=== PATIENT | male | born 1970 | race African-American/Black ===

== ENCOUNTER 2016-11-06 12:42 | Inpatient (IN) | payer OTHER ==
[2016-11-06 16:06] VITALS: BMI 23.6
--- NOTE | 2016-11-06 17:52 | HP ---
CIWA Score - CIWA Score Nausea/Vomitin-Mild Nausea/No Vomiting Muscle Tremors: 4-Moderate,w/Arms Extend Anxiety: 4-Mod. 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 170 MG LAST DOSE 11/06/16 IS ADMITTED TO DETOX Exam Limitations: No Limitations - Ebola screening Have you traveled outside of the country in the last 21 days: No Have you had contact with anyone from an Ebola affected area: No Have you been sick,other than usual withdrawal symptoms: No Do you have a fever: No - Review of Systems Constitutional: Chills, Changes in sleep, Weight Stable EENT: reports: No Symptoms Reported Respiratory: reports: No Symptoms reported Cardiac: reports: No Symptoms Reported GI: reports: Nausea, Poor Fluid Intake, Abdominal cramping : reports: No Symptoms Reported Musculoskeletal: reports: Muscle Weakness (RIGHT ARM) Integumentary: reports: No Symptoms Reported Neuro: reports: Seizure (COCAINE INDUCED - LAST EPISODE 2014), Tremors Endocrine: reports: No Symptoms Reported Hematology: reports: No Symptoms Reported Psychiatric: reports: Judgement Intact, Anxious, Depressed Other Systems: Reviewed and Negative Patient History - Patient Medical History Hx Anemia: No Hx Asthma: Yes Hx Chronic Obstructive Pulmonary Disease (COPD): No Hx Cancer: No Hx Cardiac Disorders: No Hx Congestive Heart Failure: No Hx Hypertension: No Hx Hypercholesterolemia: No Hx Pacemaker: No HX Cerebrovascular Accident: No Hx Seizures: Yes (2014 COCAINE INDUCED) Hx Dementia: No Hx Diabetes: No Hx Gastrointestinal Disorders: No Hx Liver Disease: No Hx Genitourinary Disorders: No Hx Sexually Transmitted Disorders: No Hx Renal Disease (ESRD): No Hx Thyroid Disease: No Hx Human Immunodeficiency Virus (HIV): No Hx Hepatitis C: No Hx Depression: Yes Hx Suicide Attempt: No Hx Bipolar Disorder: No Hx Schizophrenia: No - Patient Surgical History Past Surgical History: Yes Hx Neurologic Surgery: No Hx Cataract Extraction: No Hx Cardiac Surgery: No Hx Lung Surgery: No Hx Breast Surgery: No Hx Breast Biopsy: No Hx Abdominal Surgery: No Hx Appendectomy: No Hx Cholecystectomy: No Hx Genitourinary Surgery: No Hx Orthopedic Surgery: Yes (2001 RIGHT LOWER LEG) Anesthesia Reaction: No - PPD History Previous Implant?: Yes Documented Results: Negative w/o proof Implanted On Prior [facility] Admission?: No - Smoking Cessation Smoking history: Current every day smoker Have you smoked in the past 12 months: Yes Aproximately how many cigarettes per day: 6 Cigars Per Day: 0 Hx Chewing Tobacco Use: No Initiated information on smoking cessation: Yes 'Breaking Loose' booklet given: 11/06/16 - Substance & Tx. History Hx Alcohol Use: Yes Hx Substance Use: Yes Substance Use Type: Alcohol, Heroin, Tranquilizers Hx Substance Use Treatment: Yes - Substances Abused Alcohol Route: Oral Frequency: Daily Amount used: 22OZX5 [id number] Age of first use: 14 Date of Last Use: 11/06/16 Benzodiazepine (Klonopin) Route: Oral Frequency: Daily Amount used: 6 MG Age of first use: 36 Date of Last Use: 11/06/16 Family Disease History - Family Disease History Family Disease History: Heart Disease: Father ( LIVER), Other: Father, Mother (OVERDOSE ), Brother () Admission Physical Exam BHS - Vital Signs Vital Signs: Vital Signs - 24 hr 11/06/16 15:57 Temperature 96 F L Pulse Rate 74 Respiratory 20 Rate Blood Pressure 113/70 - Physical General Appearance: Yes: Appropriately Dressed, Mild Distress, Thin, Tremorous, Irritable, Sweating, Anxious HEENTM: Yes: Hearing grossly Normal, Normal ENT Inspection, Normocephalic, Normal Voice Respiratory: Yes: Chest Non-Tender, Lungs Clear, Normal Breath Sounds, No Respiratory Distress, No Accessory Muscle Use Neck: Yes: Supple, Trachea in good position Breast: Yes: Breasts Symetrical Cardiology: Yes: Regular Rhythm, Regular Rate, S1, S2 Abdominal: Yes: Non Tender, Soft Genitourinary: Yes: Within Normal Limits Back: Yes: Normal Inspection Musculoskeletal: Yes: Gait Steady, Muscle weakness (RIGHT ARM) Extremities: Yes: Normal Inspection, Non-Tender, Tremors Neurological: Yes: Alert, Motor Strength 5/5, Normal Response, Depressed Affect Integumentary: Yes: Warm Lymphatic: Yes: Within Normal Limits - Diagnostic (1) Alcohol dependence with uncomplicated withdrawal Current Visit: Yes Status: Acute (2) Methadone maintenance therapy patient Current Visit: Yes Status: Chronic (3) Nicotine dependence Current Visit: Yes Status: Acute Qualifiers: Nicotine product type: cigarettes Substance use status: in withdrawal Qualified Code(s): F17.213 - Nicotine dependence, cigarettes, with withdrawal (4) Asthma Current Visit: Yes Status: Chronic Qualifiers: Asthma severity: mild intermittent Asthma complication type: with status asthmaticus Qualified Code(s): J45.22 - Mild intermittent asthma with status asthmaticus (5) Weight loss Current Visit: Yes Status: Chronic (6) Depression (emotion) Current Visit: Yes Status: Suspected Qualifiers: Depression Type: dysthymia Qualified Code(s): F34.1 - Dysthymic disorder (7) Seizure Current Visit: Yes Status: Resolved Comment: COCAINE INDUCED - LAST EPISODE 2014 (8) Weakness of right arm Current Visit: Yes Status: Chronic Comment: 2 YEARS - SCHEDULE FOR SURGERY - ROTATOR CUP "DISSOCIATED" Cleared for Admission [facility] - Detox or Rehab [facility] Level of Care: Medically Managed Detox Regimen/Protocol: Valium [facility] Breath Alcohol Content Breath Alcohol Content: 0 Urine Drug Screen - Results Drug Screen Negative: No Urine Drug Screen Results: BZO-Benzodiazepines, MTD-Methadone
[2016-11-06] MEDS ORDERED: MAGNESIUM HYDROX 2400MG/30ML ORAL SUSPENSION 30 ML CUP PO PRN (18:02)
[2016-11-06] MEDS ORDERED: IBUPROFEN 400 MG TABLET (FP) PO PRN (18:02)
[2016-11-06] MEDS ORDERED: LOPERAMIDE HCL 2 MG CAPSULE PO PRN (18:02)
[2016-11-06] MEDS ORDERED: P-EPHED 60MG/TRIPROLIDI 2.5MG TABLET PO PRN (18:02)
[2016-11-06] MEDS ORDERED: ACETAMINOPHEN 325 MG TABLET (FP) PO PRN (18:02)
[2016-11-06] MEDS ORDERED: MAG HYDROX/AL HYDROX/SIMETH 30 ML UNIT-DOSE CUP PO PRN (18:02)
[2016-11-06] MEDS ORDERED: NICOTINE POLACRILEX 2 MG GUM BUC PRN (18:02)
[2016-11-06] MEDS ORDERED: guaiFENesin/D-METHORPHAN HB 10 ML UNIT-DOSE CUPS PO PRN (18:02)
[2016-11-06] MEDS ORDERED: MENTHOL/PHENOL 1 EACH UD MM PRN (18:02)
[2016-11-06] MEDS ORDERED: MAGNESIUM CITRATE 300 ML BOTTLE PO PRN (18:02)
[2016-11-06] MEDS ORDERED: ALBUTEROL SO4 6.7 GM HFA INHALER IH PRN (18:05)
[2016-11-06] MEDS ORDERED: diazePAM 5 MG TABLET PO PRN (18:23)
[2016-11-06] MEDS ORDERED: diazePAM 5 MG TABLET PO ONE (18:30)
[2016-11-06] MEDS ORDERED: chlordiazePOXIDE HCL 25 MG CAPSULE PO PRN (18:30)
[2016-11-06] MEDS ORDERED: diphenhydrAMINE HCL 50 MG CAPSULE PO PRN (22:00)
[2016-11-06] MEDS ORDERED: diazePAM 5 MG TABLET PO SCH (22:00)
[2016-11-06] MEDS: chlordiazePOXIDE HCL 25 MG CAPSULE PO SCH (22:09)
[2016-11-06] MEDS: THIAMINE HCL 100 MG TABLET (FP) PO SCH (22:09)
[2016-11-07] MEDS: chlordiazePOXIDE HCL 25 MG CAPSULE PO SCH ×4 (05:37→22:03)
[2016-11-07] MEDS ORDERED: METHADONE HCL 10 MG TABLET PO SCH (07:15)
[2016-11-07] MEDS ORDERED: METHADONE HCL 10 MG TABLET ONE (07:34)
[2016-11-07] MEDS ORDERED: METHADONE HCL 40 MG DISPERSABLE TABLET ONE (07:34)
[2016-11-07] MEDS: METHADONE 160 MG, METHADONE 10 MG PO SCH (07:35)
--- NOTE | 2016-11-07 09:18 | PN ---
[facility] CIWA - CIWA Score Nausea/Vomitin-No Nausea/No Vomiting Muscle Tremors: 4-Moderate,w/Arms Extend Anxiety: 6 Agitation: 4-Moderately Restless Paroxysmal Sweats: 1-Minimal Palms Moist Orientation: 0-Oriented Tacttile Disturbances: 3-Moderate Itch/Numb/Burn Auditory Disturbances: 0-None Visual Disturbances: 0-None Headache: 0-None Present CIWA-Ar Total Score: 18 BHS Progress Note (SOAP) Subjective: SEVERE ANXIETY,RESTLESSNESS,AGITATION,TREMORS,INTERMITTENT SLEEP Objective: 11/07/16 09:17 Vital Signs Temperature 97.3 F L 11/07/16 09:13 Pulse Rate 75 11/07/16 09:13 Respiratory Rate 18 11/07/16 09:13 Blood Pressure 100/71 11/07/16 09:13 O2 Sat by Pulse Oximetry (%) LAB RESULTS PENDING. Assessment: 11/07/16 09:18 WITHDRAWAL SX Plan: CONTINUE DETOX
[2016-11-07] MEDS: PRENATAL VITAMINS W/ FOLIC ACID TABLET (FP) PO SCH (10:09)
[2016-11-07] MEDS: NICOTINE 14 MG/24 HOURS TOPICAL PATCH TD SCH (10:10)
[2016-11-07 10:28] LABS: MCH 33.3 pg (25.7-33.7); MCHC 33.7 g/dl (32.0-35.9); MEAN CELL VOLUME 98.8 fl (80-96); MEAN PLT VOLUME 7.4 fl (7.5-11.1); PLATELET COUNT 189 K/MM3 (134-434); RDW 13.3 % (11.9-15.9); WHITE BLOOD COUNT 3.5 K/mm3 (4.0-10.0)
--- NOTE | 2016-11-07 11:41 | CONSULT ---
[facility] Psychiatric Consult - Data Date of interview: 11/07/16 Admission source: [facility] Identifying data: First admission to [facility] for this 46 y/o AA male seeking detox treatment for alcohol,heroin and xanax dependence.Patient is ,a father of one,homeless (detention),unemployed and supported on Public Assistance. Substance Abuse History: - Smoking Cessation. Smoking history: Current every day smoker. Have you smoked in the past 12 months: Yes. Aproximately how many cigarettes per day: 6. Cigars Per Day: 0. Hx Chewing Tobacco Use: No. Initiated information on smoking cessation: Yes. 'Breaking Loose' booklet given : 11/06/16. - Substance & Tx. History. Hx Alcohol Use: Yes. Hx Substance Use : Yes. Substance Use Type: Alcohol, Heroin, Tranquilizers. Hx Substance Use Treatment: Yes. - Substances Abused. Alcohol. Route: Oral. Frequency: Daily. Amount used: 22OZX5 [id number]. Age of first use: 14. Date of Last Use: 11/06/16. Benzodiazepine (Klonopin). Route: Oral. Frequency: Daily. Amount used: 6 MG. Age of first use: 36. Date of Last Use: 11/06/16. Confirmed by patient. Medical History: Bronchial asthma,history of cocaine-induced seizures and chronic pain (right arm). Psychiatric History: Diagnosed with MDD and Anxiety Disorder.Patient does not recall the name of his OPD program.He reports a history of one psychiatric hospitalization at [facility] in [facility] (two years prior to its closure).Mr Taylor is currently on methadone maintenance (170 mg/day) at [facility] in [facility].He denies history of suicide attempts. Physical/Sexual Abuse/Trauma History: No history reported. Additional Comment: Urine Drug Screen Results: BZO-Benzodiazepines, MTD- Methadone.Noted. Mental Status Exam - Mental Status Exam Alert and Oriented to: Time, Place, Person Cognitive Function: Good Patient Appearance: Well Groomed Mood: Withdrawn, Anxious Affect: Mood Congruent Patient Behavior: Sedated (light sedation), Fatigued, Cooperative Speech Pattern: Clear Voice Loudness: Normal Thought Process: Goal Oriented Thought Disorder: Not Present Hallucinations: Denies Suicidal Ideation: Denies Homicidal Ideation: Denies Insight/Judgement: Poor Sleep: Fair Appetite: Good Muscle strength/Tone: Normal Gait/Station: Normal Psychiatric Findings - Problem List ([place] 1, 2,3) (1) Alcohol dependence with uncomplicated withdrawal Current Visit: Yes Status: Acute (2) Opioid dependence on agonist therapy Current Visit: Yes Status: Acute (3) Nicotine dependence Current Visit: Yes Status: Acute Qualifiers: Nicotine product type: cigarettes Substance use status: in withdrawal Qualified Code(s): F17.213 - Nicotine dependence, cigarettes, with withdrawal (4) Substance induced mood disorder Current Visit: Yes Status: Acute (5) Depressive disorder Current Visit: Yes Status: Chronic Comment: History. (6) Asthma Current Visit: Yes Status: Chronic Qualifiers: Asthma severity: mild intermittent Asthma complication type: with status asthmaticus Qualified Code(s): J45.22 - Mild intermittent asthma with status asthmaticus (7) Weakness of right arm Current Visit: Yes Status: Chronic Comment: 2 YEARS - SCHEDULE FOR SURGERY - ROTATOR CUP "DISSOCIATED" - Initial Treatment Plan Initial Treatment Plan: Psychoeducation.Detoxification.Patient declines any medications other than a benzodiazepine.Offered prozac as reported in recent pharmacy claims (10/17/16).Refused.Observation.
[2016-11-07 11:43] LABS: CALCIUM 8.7 mg/dL (8.5-10.1)
[2016-11-07 11:49] LABS: ALBUMIN 3.1 g/dl (3.4-5.0); ALK PHOS 154 U/L (45-117); ANION GAP 8 (8-16); BILIRUBIN,TOTAL 0.5 mg/dL (0.2-1.0); CO2 31 mmol/L (21-32); COCKROFT - GAULT 122.35; CREATININE 0.9 mg/dL (0.7-1.3); GLUCOSE,RANDOM 80 mg/dL (74-106); SGOT/AST 179 U/L (15-37); SGPT/ALT 71 U/L (12-78); TOT PROT 7.1 g/dl (6.4-8.2)
--- NOTE | 2016-11-07 13:46 | EKG ---
Test Reason : Blood Pressure : / mmHG Vent. Rate : 070 BPM Atrial Rate : 070 BPM P-R Int : 184 ms QRS Dur : 120 ms QT Int : 426 ms P-R-T Axes : 075 017 030 degrees QTc Int : 460 ms NORMAL SINUS RHYTHM NON-SPECIFIC INTRA-VENTRICULAR CONDUCTION DELAY NONSPECIFIC ST ABNORMALITY NO PREVIOUS ECGS AVAILABLE Confirmed by ENRRIQUE PACHECO MD ([id number]) on 11/07/2016 1:45:49 PM Referred By: Confirmed By:ENRRIQUE PACHECO MD
[2016-11-07] MEDS: THIAMINE HCL 100 MG TABLET (FP) PO SCH (22:03)
[2016-11-07 23:27] LABS: URINE APPEARANCE CLEAR; URINE BILIRUBIN NEGATIVE (NEGATIVE); URINE BLOOD NEGATIVE (NEGATIVE); URINE COLOR YELLOW; URINE GLUCOSE (UA) NEGATIVE (NEGATIVE); URINE KETONE NEGATIVE (NEGATIVE); URINE LEUK ESTERASE NEGATIVE (NEGATIVE); URINE NITRITE NEGATIVE (NEGATIVE); URINE PROTEIN NEGATIVE (NEGATIVE); URINE UROBILINOGEN 2.0 E.U/dl E.U./dl (0.2-1.0)
[2016-11-08] MEDS ORDERED: METHADONE HCL 10 MG TABLET ONE (04:50)
[2016-11-08] MEDS ORDERED: METHADONE HCL 40 MG DISPERSABLE TABLET ONE (04:51)
[2016-11-08] MEDS: METHADONE 160 MG, METHADONE 10 MG PO SCH (05:15)
[2016-11-08] MEDS: chlordiazePOXIDE HCL 25 MG CAPSULE PO SCH ×3 (05:15→17:22)
[2016-11-08] MEDS ORDERED: diazePAM 5 MG TABLET PO SCH (10:00)
[2016-11-08] MEDS: PRENATAL VITAMINS W/ FOLIC ACID TABLET (FP) PO SCH (10:13)
[2016-11-08] MEDS: NICOTINE 14 MG/24 HOURS TOPICAL PATCH TD SCH (10:15)
--- NOTE | 2016-11-08 13:17 | PN ---
[facility] CIWA - CIWA Score Nausea/Vomitin-Mild Nausea/No Vomiting Muscle Tremors: 4-Moderate,w/Arms Extend Anxiety: 3 Agitation: 2 Paroxysmal Sweats: 2 Orientation: 0-Oriented Tacttile Disturbances: 2-Mild Itch/Numbness/Burn Auditory Disturbances: 0-None Visual Disturbances: 0-None Headache: 0-None Present CIWA-Ar Total Score: 14 S Progress Note (SOAP) Subjective: Interrupted sleep, Tremors. Objective: PT. A & O X 3. 11/08/16 13:15 Vital Signs Temperature 97.6 F 11/08/16 09:47 Pulse Rate 76 11/08/16 09:47 Respiratory Rate 18 11/08/16 09:47 Blood Pressure 100/68 11/08/16 09:47 O2 Sat by Pulse Oximetry (%) Laboratory Last Values WBC 3.5 K/mm3 (4.0-10.0) L 11/07/16 07:00 RBC 3.72 M/mm3 (4.00-5.60) L 11/07/16 07:00 Hgb 12.4 GM/dL (11.7-16.9) 11/07/16 07:00 Hct 36.8 % (35.4-49) 11/07/16 07:00 MCV 98.8 fl (80-96) H 11/07/16 07:00 MCHC 33.7 g/dl (32.0-35.9) 11/07/16 07:00 RDW 13.3 % (11.9-15.9) 11/07/16 07:00 Plt Count 189 K/MM3 (134-434) 11/07/16 07:00 MPV 7.4 fl (7.5-11.1) L 11/07/16 07:00 Sodium 138 mmol/L (136-145) 11/07/16 07:00 Potassium 4.2 mmol/L (3.5-5.1) 11/07/16 07:00 Chloride 99 mmol/L (98-107) 11/07/16 07:00 Carbon Dioxide 31 mmol/L (21-32) 11/07/16 07:00 Anion Gap 8 (8-16) 11/07/16 07:00 BUN 12 mg/dL (7-18) 11/07/16 07:00 Creatinine 0.9 mg/dL (0.7-1.3) 11/07/16 07:00 Creat Clearance w eGFR > 60 (>60) 11/07/16 07:00 Random Glucose 80 mg/dL (74-106) 11/07/16 07:00 Calcium 8.7 mg/dL (8.5-10.1) 11/07/16 07:00 Total Bilirubin 0.5 mg/dL (0.2-1.0) 11/07/16 07:00 AST 179 U/L (15-37) H 11/07/16 07:00 ALT 71 U/L (12-78) 11/07/16 07:00 Alkaline Phosphatase 154 U/L (45-117) H 11/07/16 07:00 Total Protein 7.1 g/dl (6.4-8.2) 11/07/16 07:00 Albumin 3.1 g/dl (3.4-5.0) L 11/07/16 07:00 Urine Color Yellow 11/07/16 19:49 Urine Appearance Clear 11/07/16 19:49 Urine pH 6.0 (5.0-8.0) 11/07/16 19:49 Ur Specific [place] 1.020 (1.001-1.035) 11/07/16 19:49 Urine Protein Negative (NEGATIVE) 11/07/16 19:49 Urine Glucose (UA) Negative (NEGATIVE) 11/07/16 19:49 Urine Ketones Negative (NEGATIVE) 11/07/16 19:49 Urine Blood Negative (NEGATIVE) 11/07/16 19:49 Urine Nitrite Negative (NEGATIVE) 11/07/16 19:49 Urine Bilirubin Negative (NEGATIVE) 11/07/16 19:49 Urine Urobilinogen 2.0 e.u/dl E.U./dl (0.2-1.0) 11/07/16 19:49 Ur Leukocyte Esterase Negative (NEGATIVE) 11/07/16 19:49 RPR Titer Nonreactive (NONREACTIVE) 11/07/16 07:00 LABS NOTED. Assessment: 11/08/16 13:16 WITHDRAWAL SYMPTOMS. Plan: CONTINUE DETOX. ADVISED PATIENT TO FOLLOW-UP WITH [facility] / REHAB MEDICAL PROVIDER AFTER DISCHARGE FROM DETOX FOR GENERAL MEDICAL ASSESSMENT AND FOR ABNORMAL ADMISSION LAB VALUES.
[2016-11-08] MEDS: THIAMINE HCL 100 MG TABLET (FP) PO SCH (22:05)
[2016-11-08] MEDS: chlordiazePOXIDE 5 MG CAPSULE PO SCH (22:05)
[2016-11-09] MEDS ORDERED: METHADONE HCL 10 MG TABLET ONE (03:08)
[2016-11-09] MEDS ORDERED: METHADONE HCL 40 MG DISPERSABLE TABLET ONE (03:08)
[2016-11-09] MEDS: METHADONE 160 MG, METHADONE 10 MG PO SCH (05:31)
[2016-11-09] MEDS: chlordiazePOXIDE 5 MG CAPSULE PO SCH ×3 (05:31→17:02)
[2016-11-09] MEDS: PRENATAL VITAMINS W/ FOLIC ACID TABLET (FP) PO SCH (10:04)
[2016-11-09] MEDS: NICOTINE 14 MG/24 HOURS TOPICAL PATCH TD SCH (10:06)
[2016-11-09] MEDS ORDERED: ALBUTEROL SO4 6.7 GM HFA INHALER IH PRN (12:17)
--- NOTE | 2016-11-09 12:32 | PN ---
S Progress Note (SOAP) Subjective: Tremor, interrupted sleep (benadryl doesn't work), anxious, sweating Objective: 11/09/16 12:29 Last Vital Signs Temp Pulse Resp BP Pulse Ox 96.8 F L 86 18 104/73 11/09/16 09:44 11/09/16 09:44 11/09/16 09:44 11/09/16 09:44 Laboratory Tests 11/07/16 11/07/16 11/07/16 07:00 07:00 07:00 WBC 3.5 L RBC 3.72 L Hgb 12.4 Hct 36.8 MCV 98.8 H MCHC 33.7 RDW 13.3 Plt Count 189 MPV 7.4 L Sodium 138 Potassium 4.2 Chloride 99 Carbon Dioxide 31 Anion Gap 8 BUN 12 Creatinine 0.9 Creat Clearance w eGFR > 60 Random Glucose 80 Calcium 8.7 Total Bilirubin 0.5 AST 179 H ALT 71 Alkaline Phosphatase 154 H Total Protein 7.1 Albumin 3.1 L Urine Color Urine Appearance Urine pH Ur Specific [place] Urine Protein Urine Glucose (UA) Urine Ketones Urine Blood Urine Nitrite Urine Bilirubin Urine Urobilinogen Ur Leukocyte Esterase RPR Titer Nonreactive 11/07/16 19:49 WBC RBC Hgb Hct MCV MCHC RDW Plt Count MPV Sodium Potassium Chloride Carbon Dioxide Anion Gap BUN Creatinine Creat Clearance w eGFR Random Glucose Calcium Total Bilirubin AST ALT Alkaline Phosphatase Total Protein Albumin Urine Color Yellow Urine Appearance Clear Urine pH 6.0 Ur Specific [place] 1.020 Urine Protein Negative Urine Glucose (UA) Negative Urine Ketones Negative Urine Blood Negative Urine Nitrite Negative Urine Bilirubin Negative Urine Urobilinogen 2.0 e.u/dl Ur Leukocyte Esterase Negative RPR Titer Labs noted Assessment: 11/09/16 12:30 Withdrawal symptoms Plan: Continue detox, ambien 1omg PO x 1 dose tonight. Patient requests to leave at 0600 in AM (order placed for 06:15).
[2016-11-09] MEDS ORDERED: ZOLPIDEM TARTRATE 5 MG TABLET PO ONE (22:00)
[2016-11-09] MEDS: chlordiazePOXIDE HCL 10 MG CAPSULE PO SCH (22:23)
[2016-11-09] MEDS: THIAMINE HCL 100 MG TABLET (FP) PO SCH (22:23)
[2016-11-10] MEDS ORDERED: METHADONE HCL 40 MG DISPERSABLE TABLET ONE (04:37)
[2016-11-10] MEDS ORDERED: METHADONE HCL 10 MG TABLET ONE (04:37)
[2016-11-10] MEDS: chlordiazePOXIDE HCL 10 MG CAPSULE PO SCH (05:32)
[2016-11-10] MEDS: METHADONE 160 MG, METHADONE 10 MG PO SCH (05:32)
[2016-11-10 06:37] VITALS: BP 99/69; PULSE 85; TEMP 96.3
[2016-11-10] MEDS ORDERED: diazePAM 5 MG TABLET PO SCH (10:00)
--- NOTE | 2016-12-14 16:22 | DS ---
[facility] Detox Discharge Summary Admission Date: 11/06/16 Discharge Date: 11/10/16 - History Present History: Alcohol Dependence, MMTP Pertinent Past History: Asthma - Physical Exam Results Vital Signs: Vital Signs Temperature 96.3 F L 11/10/16 06:36 Pulse Rate 85 11/10/16 06:36 Respiratory Rate 16 11/10/16 06:36 Blood Pressure 99/69 11/10/16 06:36 O2 Sat by Pulse Oximetry (%) Pertinent Admission Physical Exam Findings: withdrawal sx. Laboratory Last Values WBC 3.5 K/mm3 (4.0-10.0) L 11/07/16 07:00 RBC 3.72 M/mm3 (4.00-5.60) L 11/07/16 07:00 Hgb 12.4 GM/dL (11.7-16.9) 11/07/16 07:00 Hct 36.8 % (35.4-49) 11/07/16 07:00 MCV 98.8 fl (80-96) H 11/07/16 07:00 MCHC 33.7 g/dl (32.0-35.9) 11/07/16 07:00 RDW 13.3 % (11.9-15.9) 11/07/16 07:00 Plt Count 189 K/MM3 (134-434) 11/07/16 07:00 MPV 7.4 fl (7.5-11.1) L 11/07/16 07:00 Sodium 138 mmol/L (136-145) 11/07/16 07:00 Potassium 4.2 mmol/L (3.5-5.1) 11/07/16 07:00 Chloride 99 mmol/L (98-107) 11/07/16 07:00 Carbon Dioxide 31 mmol/L (21-32) 11/07/16 07:00 Anion Gap 8 (8-16) 11/07/16 07:00 BUN 12 mg/dL (7-18) 11/07/16 07:00 Creatinine 0.9 mg/dL (0.7-1.3) 11/07/16 07:00 Creat Clearance w eGFR > 60 (>60) 11/07/16 07:00 Random Glucose 80 mg/dL (74-106) 11/07/16 07:00 Calcium 8.7 mg/dL (8.5-10.1) 11/07/16 07:00 Total Bilirubin 0.5 mg/dL (0.2-1.0) 11/07/16 07:00 AST 179 U/L (15-37) H 11/07/16 07:00 ALT 71 U/L (12-78) 11/07/16 07:00 Alkaline Phosphatase 154 U/L (45-117) H 11/07/16 07:00 Total Protein 7.1 g/dl (6.4-8.2) 11/07/16 07:00 Albumin 3.1 g/dl (3.4-5.0) L 11/07/16 07:00 Urine Color Yellow 11/07/16 19:49 Urine Appearance Clear 11/07/16 19:49 Urine pH 6.0 (5.0-8.0) 11/07/16 19:49 Ur Specific [place] 1.020 (1.001-1.035) 11/07/16 19:49 Urine Protein Negative (NEGATIVE) 11/07/16 19:49 Urine Glucose (UA) Negative (NEGATIVE) 11/07/16 19:49 Urine Ketones Negative (NEGATIVE) 11/07/16 19:49 Urine Blood Negative (NEGATIVE) 11/07/16 19:49 Urine Nitrite Negative (NEGATIVE) 11/07/16 19:49 Urine Bilirubin Negative (NEGATIVE) 11/07/16 19:49 Urine Urobilinogen 2.0 e.u/dl E.U./dl (0.2-1.0) 11/07/16 19:49 Ur Leukocyte Esterase Negative (NEGATIVE) 11/07/16 19:49 RPR Titer Nonreactive (NONREACTIVE) 11/07/16 07:00 labs noted - Treatment Hospital Course: Detox Protocol Followed, Detoxed Safely, Responded well, Discharged Condition Good, Rehab Referral Accepted Patient has Accepted a Rehab Referral to: [facility] - Medication Discharge Medications: Ambulatory Orders Albuterol Sulfate Inhaler - [Ventolin Hfa Inhaler -] 1 - 2 inh PO Q4H 11/06/16 - Diagnosis (1) Alcohol dependence with uncomplicated withdrawal Status: Acute (2) Nicotine dependence Status: Acute Qualifiers: Nicotine product type: cigarettes Substance use status: in withdrawal Qualified Code(s): F17.213 - Nicotine dependence, cigarettes, with withdrawal (3) Opioid dependence on agonist therapy Status: Acute (4) Substance induced mood disorder Status: Acute (5) Asthma Status: Chronic Qualifiers: Asthma severity: mild intermittent Asthma complication type: uncomplicated Qualified Code(s): J45.20 - Mild intermittent asthma, uncomplicated - AMA Did Patient Leave Against Medical Advice: No
== END 2016-11-10 06:35 | disposition home or self-care (01) | DRG 773 ==
LOC: YASAS 12:42 → Y3N 18:22
PROVIDERS: ADMIT Internal Medicine Addiction Medicine; ATTEND Internal Medicine Addiction Medicine
PROC: HZ2ZZZZ Detoxification Services for Substance Abuse Treatment (ICD-10-PCS; principal; 2016-11-10)
DX: F11.20 Opioid dependence, uncomplicated (principal); F10.230 Alcohol dependence with withdrawal, uncomplicated; F17.210 Nicotine dependence, cigarettes, uncomplicated; F19.24 Other psychoactive substance dependence with psychoactive substance-induced mood disorder; F34.1 Dysthymic disorder; J45.22 Mild intermittent asthma with status asthmaticus; M62.81 Muscle weakness (generalized); G40.509 Epileptic seizures related to external causes, not intractable, without status epilepticus; M75.101 Unspecified rotator cuff tear or rupture of right shoulder, not specified as traumatic
CPT/HCPCS: 36415; 80053; 81003; 85027; 86593; 93005; 93010